=== PATIENT | female | born 1985 ===

== ENCOUNTER 2016-09-16 16:47 | Emergency (ER) | payer OTHER ==
[2016-09-16 17:01] VITALS: BP 121/74; PULSE 74; RESP 19; TEMP 98.8; O2SAT 99
--- NOTE | 2016-09-16 17:30 | ED PDOC ---
HPI: Female Pain Time Seen by Provider: 09/16/16 17:28 Chief Complaint (Nursing): Female Genitourinary Chief Complaint (Provider): vaginal d/c History Per: Patient History/Exam Limitations: no limitations Onset/Duration Of Symptoms: Days (6 months) Associated Symptoms: Other (vaginal d/c-yellow with ithing and burning. was sexually active 6 months agounprotected and noted [facility] from [facility]. has tried douching and OTC antifungal.-non are effective. ) Past Medical History Reviewed: Historical Data, Nursing Documentation, Vital Signs Vital Signs: Last Vital Signs Temp 98.8 F 09/16/16 16:58 Pulse 74 09/16/16 16:58 Resp 19 09/16/16 16:58 BP 121/74 09/16/16 16:58 Pulse Ox 99 09/16/16 16:58 - Medical History PMH: No Chronic Diseases - Family History Family History: States: No Known Family Hx - Home Medications Home Medications: Ambulatory Orders Medication Instructions Recorded Fluconazole [Diflucan] 150 mg PO ONCE #1 tab 09/16/16 - Allergies Allergies/Adverse Reactions: Allergies Allergy/AdvReac Type Severity Reaction Status Date / Time No Known Allergies Allergy Verified 09/16/16 16:56 Review of Systems ROS Statement: Except As Marked, All Systems Reviewed And Found Negative Genitourinary Female: Positive for: Vaginal Discharge Physical Exam - Reviewed Nursing Documentation Reviewed: Yes Vital Signs Reviewed: Yes - Physical Exam Appears: Positive for: Well, Non-toxic, No Acute Distress Head Exam: Positive for: ATRAUMATIC, NORMAL INSPECTION, NORMOCEPHALIC Skin: Positive for: Normal Color, Warm, DRY Cardiovascular/Chest: Positive for: Regular Rate, Rhythm Respiratory: Positive for: CNT, Normal Breath Sounds Pelvic Exam: Positive for: External Exam Normal, Discharge, Lesions (white lesions adhered to wall and cervix) Neurologic/Psych: Positive for: Alert, Oriented - ECG O2 Sat by Pulse Oximetry: 99 Medical Decision Making Medical Decision Making: dx: yeast infection and gonorrhea and chlamydia testing . pt offered to get rx prophylactically but declined. Disposition - Clinical Impression Clinical Impression: Yeast infection - Patient ED Disposition Is Patient to be Admitted: No Counseled Patient/Family Regarding: Diagnosis, Need For Followup, Rx Given - Disposition Disposition: Routine/Home Disposition Time: 17:37 Condition: STABLE Prescriptions: Fluconazole [Diflucan] 150 mg PO ONCE #1 tab Instructions: Vulvovaginal Candidiasis (ED)
[2016-09-16] MEDS ORDERED: Fluconazole 150 MG TAB PO ONE (17:37)
== END 2016-09-16 18:16 | disposition home or self-care (01) ==
LOC: H.ER 16:47
DX: B37.9 Candidiasis, unspecified (principal)

== ENCOUNTER 2016-10-09 11:39 | Emergency (ER) | payer OTHER ==
[2016-10-09 12:06] VITALS: BP 105/67; RESP 18; TEMP 98.6; O2SAT 99
[2016-10-09 12:32] LABS: BASO # 0.1 K/uL (0.0-0.2); BASO % 0.7 % (0.0-2.0); EOS # 0.2 K/uL (0.0-0.7); EOS % 2.1 % (0.0-4.0); HEMOGLOBIN 11.9 g/dL (12.0-16.0); LYMPH % 27.8 % (20.0-40.0); MEAN CELL VOLUME 92.4 fl (81.0-99.0); MEAN CORPUSCULAR HEMOGLOBIN 30.5 pg (27.0-31.0); MEAN PLATELET VOLUME 8.6 fl (7.2-11.7); MONO # 0.4 K/uL (0.0-0.8); MONO % 5.8 % (0.0-10.0); NEUT # 4.6 K/uL (1.8-7.0); NEUT % 63.6 % (50.0-75.0); RBC 3.88 Mil/uL (3.80-5.20); RED CELL DISTRIBUTION WIDTH 13.3 % (11.5-14.5); WHITE BLOOD COUNT 7.3 K/uL (4.8-10.8)
[2016-10-09 13:08] LABS: ALB/GLOB RATIO 1.4 (1.0-2.1); ALBUMIN 4.3 g/dL (3.5-5.0); ALT/SGPT 29 U/L (9-52); AMYLASE 81 U/L (30-110); AST/SGOT 39 U/L (14-36); BLOOD UREA NITROGEN 22 mg/dl (7-17); CALCIUM 9.5 mg/dL (8.4-10.2); GFR AFRICAN-AMERICAN > 60; GFR NON-AFRICAN AMERICAN > 60; LIPASE 70 U/L (23-300)
[2016-10-09 13:14] LABS: SQUAMOUS EPITHIAL 1 /hpf (0-5); URINE BILIRUBIN NEGATIVE (NEGATIVE); URINE BLOOD SMALL (NEGATIVE); URINE CLARITY CLEAR (Clear); URINE COLOR YELLOW (YELLOW); URINE GLUCOSE (UA) NEG (Normal); URINE LEUKOCYTE ESTERASE NEG Leu/uL (Negative); URINE NITRATE NEGATIVE (NEGATIVE); URINE PROTEIN NEGATIVE (NEGATIVE); URINE UROBILINOGEN 0.2-1.0 mg/dL (0.2-1.0)
--- NOTE | 2016-10-09 13:48 | ED PDOC ---
HPI: Abdomen Time Seen by Provider: 10/09/16 12:09 Chief Complaint (Nursing): Abdominal Pain History Per: Patient History/Exam Limitations: no limitations Onset/Duration Of Symptoms: Gradual (today) Current Symptoms Are (Timing): Still Present Severity: Mild Location Of Pain/Discomfort: Epigastric Quality Of Discomfort: Dull, Aching Associated Symptoms: Nausea, Vomiting. denies: Fever, Chills, Diarrhea, Back Pain, Chest Pain, Constipation, Urinary Symptoms Exacerbating Factors: None Alleviating Factors: None Additional History Per: Patient Additional Complaint(s): pt c/o epigastric pain and headache. abdominal pain 10/21. Headache 01/21. pt states she feels dizzy and nauseous but denies vomiting. pt also states pain upon urination. Past Medical History Reviewed: Historical Data, Nursing Documentation, Vital Signs Vital Signs: Last Vital Signs Temp 98.6 F 10/09/16 11:58 Pulse Resp 18 10/09/16 11:58 BP 105/67 10/09/16 11:58 Pulse Ox 99 10/09/16 15:52 - Medical History PMH: No Chronic Diseases - Family History Family History: States: Unknown Family Hx - Living Arrangements Living Arrangements: With Family - Home Medications Home Medications: Ambulatory Orders Medication Instructions Recorded Fluconazole [Diflucan] 150 mg PO ONCE #1 tab 09/16/16 Metoclopramide HCl [Reglan] 10 mg PO QID PRN #30 tablet 10/09/16 Naproxen [Naprosyn Tab] 375 mg PO BID PRN #30 tab 10/09/16 - Allergies Allergies/Adverse Reactions: Allergies Allergy/AdvReac Type Severity Reaction Status Date / Time No Known Allergies Allergy Verified 09/16/16 16:56 Review of Systems ROS Statement: Except As Marked, All Systems Reviewed And Found Negative Constitutional: Negative for: Fever, Chills Cardiovascular: Negative for: Chest Pain, Palpitations, Edema, Light Headedness Respiratory: Negative for: Cough, Shortness of Breath Gastrointestinal: Positive for: Nausea, Vomiting, Abdominal Pain Musculoskeletal: Negative for: Neck Pain Skin: Negative for: Rash Neurological: Positive for: Headache. Negative for: Weakness, Numbness, Confusion, Seizures, Altered Mental Status, Dizziness Physical Exam - Reviewed Nursing Documentation Reviewed: Yes Vital Signs Reviewed: Yes - Physical Exam Appears: Positive for: Uncomfortable Head Exam: Positive for: ATRAUMATIC, NORMAL INSPECTION, NORMOCEPHALIC Eye Exam: Positive for: Normal appearance, EOMI, PERRL. Negative for: Nystagmus , Periorbital swelling, Periorbital tenderness ENT: Positive for: Pharynx Is (mmm). Negative for: Pharyngeal Erythema, Tonsillar Exudate, Tonsillar Swelling Neck: Positive for: Normal, Painless ROM, Supple Cardiovascular/Chest: Positive for: Regular Rate, Rhythm, Chest Non Tender. Negative for: Bradycardia, Tachycardia Respiratory: Positive for: Normal Breath Sounds. Negative for: Decreased Breath Sounds, Accessory Muscle Use, Crackles, Rales, Rhonchi, Stridor, Wheezing Gastrointestinal/Abdominal: Positive for: Normal Exam, Bowel Sounds, Soft. Negative for: Tenderness Back: Positive for: Normal Inspection. Negative for: L CVA Tenderness, R CVA Tenderness Extremity: Positive for: Normal ROM. Negative for: Tenderness, Pedal Edema, Calf Tenderness, Deformity Neurologic/Psych: Positive for: Alert, equipment technician II-XII, Oriented, Mood/Affect (calm) , Cerebellar Tests (ftn), Gait (steady). Negative for: Motor/Sensory Deficits, Aphasia, Facial Droop - Laboratory Results Result Diagrams: 10/09/16 12:20 10/09/16 12:20 - ECG ECG: Positive for: Interpreted By Me ECG Rhythm: Positive for: Normal QRS, Normal ST Segment, Sinus Bradycardia. Negative for: ST/T Changes O2 Sat by Pulse Oximetry: 99 Pulse Ox Interpretation: Normal - Progress ED Course And Treament: ct head neg for bleed. nml us and labs. sx markedly improved advise close f/u in the medical clinic. Re-evaluation Time: 14:30 Condition: Improved Disposition - Clinical Impression Clinical Impression: Headache - Patient ED Disposition Is Patient to be Admitted: No Counseled Patient/Family Regarding: Studies Performed, Diagnosis, Need For Followup - Disposition Referrals: [facility] [Outside] (2 to 3 days) Disposition: Routine/Home Disposition Time: 14:00 Condition: GOOD Prescriptions: Metoclopramide HCl [Reglan] 10 mg PO QID PRN #30 tablet PRN Reason: Nausea/Vomiting Naproxen [Naprosyn Tab] 375 mg PO BID PRN #30 tab PRN Reason: Pain, Moderate (4-7) Instructions: Acute Headache (ED) Print Language: MALDIVIAN
--- NOTE | 2016-10-09 14:31 | US ---
HISTORY: ruq abd pain COMPARISON: None available. TECHNIQUE: Sonographic evaluation of the right upper quadrant of the abdomen. FINDINGS: LIVER: Measures 14.7 cm cm in length and appears within normal limits of shape, size, and echotexture. No focal hepatic mass identified. The main portal vein appears patent with normal directional flow. No intrahepatic bile duct dilatation. GALLBLADDER: No gallstones. No gallbladder wall thickening or pericholecystic edema. Negative sonographic Raymond's sign as assessed by the press operator carbon blocks. COMMON BILE DUCT: Measures 4 mm. PANCREAS: Not well-visualized. RIGHT KIDNEY: Measures 9.7 x 4.2 x 4.3 cm. No obstructing calculus or hydronephrosis identified. AORTA: Limited visualization appears grossly unremarkable. IVC: Limited visualization appears grossly unremarkable. OTHER FINDINGS: None . IMPRESSION: No acute findings. See above.
--- NOTE | 2016-10-09 15:10 | CT ---
PROCEDURE: CT HEAD WITHOUT CONTRAST. HISTORY: le[place]itt COMPARISON: None available. TECHNIQUE: Axial computed tomography images were obtained through the head/brain without intravenous contrast. Radiation dose: Total exam DLP = 819.34 mGy-cm. This CT exam was performed using one or more of the following dose reduction techniques: Automated exposure control, adjustment of the mA and/or kV according to patient size, and/or use of iterative reconstruction technique. FINDINGS: HEMORRHAGE: No intracranial hemorrhage. BRAIN: No mass effect or edema. No atrophy or chronic microvascular ischemic changes.Please note that MRI with diffusion imaging is more sensitive in the detection of acute ischemic event. VENTRICLES: No hydrocephalus. CALVARIUM: Unremarkable. PARANASAL SINUSES: Unremarkable as visualized. No significant inflammatory changes. MASTOID AIR CELLS: Unremarkable as visualized. No inflammatory changes. OTHER FINDINGS: None. IMPRESSION: No acute intracranial pathology identified.
--- NOTE | 2016-10-10 11:37 | CARD ---
APPROVED REPORT EKG Measurement Heart [id number] <Conclusion> Sinus bradycardia Otherwise normal ECG
== END 2016-10-09 15:56 | disposition home or self-care (01) ==
LOC: H.ER 11:39
DX: R10.13 Epigastric pain (principal); R51 Headache; R11.2 Nausea with vomiting, unspecified

== ENCOUNTER 2016-12-18 09:41 | Emergency (ER) | payer SELFPAY ==
[2016-12-18 09:46] VITALS: TEMP 97; O2SAT 99
[2016-12-18 09:47] VITALS: BMI 21.4
--- NOTE | 2016-12-18 10:13 | ED PDOC ---
HPI: Abdomen Time Seen by Provider: 12/18/16 09:59 Chief Complaint (Nursing): Abdominal Pain Chief Complaint (Provider): abdominal pain History Per: Patient History/Exam Limitations: no limitations Onset/Duration Of Symptoms: Hrs (3), Waxing/Waning Outside of [place] travel?: No Current Symptoms Are (Timing): Still Present Context: Food (possible) Severity: Moderate Location Of Pain/Discomfort: Epigastric Quality Of Discomfort: Cramping, "Pain" Associated Symptoms: denies: Nausea, Vomiting, Diarrhea, Constipation, Urinary Symptoms Exacerbating Factors: Walking Alleviating Factors: Rest Last Bowel Movement: Yesterday Additional Complaint(s): 31 year old female presents to ED with complaints of epigastric abdominal pain starting 3 hours ago, described as intermittent cramps. She reports similar episode happened last week. She admits to eating fast food last night. Denies any associated nausea, vomiting, diarrhea or constipation. Past Medical History Reviewed: Historical Data, Nursing Documentation, Vital Signs Vital Signs: Last Vital Signs Temp 97 F L 12/18/16 09:45 Pulse 62 12/18/16 09:45 Resp BP 105/53 L 12/18/16 09:45 Pulse Ox 99 12/18/16 11:39 - Medical History PMH: No Chronic Diseases - Surgical History Surgical History: No Surg Hx - Family History Family History: States: Unknown Family Hx - Living Arrangements Living Arrangements: With Family - Social History Current smoker - smoking cessation education provided: No Alcohol: Occasional Drugs: Denies - Home Medications Home Medications: Ambulatory Orders Medication Instructions Recorded Omeprazole 20 mg PO DAILY #30 capsule. 12/18/16 - Allergies Allergies/Adverse Reactions: Allergies Allergy/AdvReac Type Severity Reaction Status Date / Time No Known Allergies Allergy Verified 12/18/16 10:05 Review of Systems Constitutional: Negative for: Fever, Weakness Eyes: Negative for: Vision Change ENT: Negative for: Throat Pain Cardiovascular: Negative for: Chest Pain, Palpitations Respiratory: Negative for: Cough, Shortness of Breath Gastrointestinal: Positive for: Abdominal Pain. Negative for: Vomiting, Diarrhea, Constipation Genitourinary Female: Negative for: Dysuria, Vaginal Bleeding Musculoskeletal: Negative for: Back Pain Skin: Negative for: Rash Neurological: Negative for: Headache Physical Exam - Reviewed Nursing Documentation Reviewed: Yes Vital Signs Reviewed: Yes - Physical Exam Appears: Positive for: Non-toxic, No Acute Distress Head Exam: Positive for: ATRAUMATIC, NORMAL INSPECTION, NORMOCEPHALIC Skin: Positive for: Warm, Dry. Negative for: Diaphoresis, Pallor, Rash Eye Exam: Positive for: Normal appearance Neck: Positive for: Painless ROM Cardiovascular/Chest: Positive for: Regular Rate, Rhythm. Negative for: Murmur Respiratory: Positive for: Normal Breath Sounds. Negative for: Wheezing, Respiratory Distress Gastrointestinal/Abdominal: Positive for: Bowel Sounds (normal active), Soft, Tenderness (epigastric area). Negative for: Distended, Guarding, Hernia Back: Positive for: Normal Inspection. Negative for: L CVA Tenderness, R CVA Tenderness Extremity: Positive for: Normal ROM. Negative for: Tenderness, Deformity Neurologic/Psych: Positive for: Alert, Oriented - Laboratory Results Result Diagrams: 12/18/16 10:30 12/18/16 10:30 - ECG O2 Sat by Pulse Oximetry: 99 Medical Decision Making Medical Decision Making: Impression: epigastric abdominal pain Prior records reviewed: patient last seen 10/09/16 for abdominal pain and headache, normal labs and CT head, normal renal and abdominal US; patient was discharged. Plan: * Labs * IV NS, Pepcid, Toradol Progress: Labs reviewed and unremarkable, no leukocytosis, elevated lipase or other abnormality. 1135 Patient reevaluated and reports feeling better, pain has much improved. She reports using restroom and after having bowel movement, feeling better. Abdomen remains soft and patient has no fever and stable vital signs. Disposition - Clinical Impression Clinical Impression: Epigastric abdominal pain, Gastritis - Patient ED Disposition Is Patient to be Admitted: No Counseled Patient/Family Regarding: Studies Performed, Diagnosis, Need For Followup, Rx Given - Disposition Referrals: [facility] [Outside] Disposition: Routine/Home Disposition Time: 11:37 Condition: IMPROVED Additional Instructions: Tus laboratorios filiberto normales Por favor tome los medicamentos necesarios para el dolor diario Seguimiento en la clnica para ms atencin Prescriptions: Omeprazole 20 mg PO DAILY #30 capsule. Instructions: Gastritis (DC) Forms: [employer] (Indian) Print Language: SYRIAC - POA Present On Arrival: None
[2016-12-18] MEDS ORDERED: Sodium Chloride 0.9% 1,000 ML IV SCH (10:30)
[2016-12-18 10:46] LABS: BASO # 0.1 K/uL (0.0-0.2); BASO % 0.5 % (0.0-2.0); EOS # 0.2 K/uL (0.0-0.7); EOS % 1.6 % (0.0-4.0); HEMATOCRIT 36.1 % (34.0-47.0); LYMPH # 2.4 K/uL (1.0-4.3); MEAN CELL VOLUME 92.1 fl (81.0-99.0); MEAN CORPUSCULAR HGB CONC 33.7 g/dL (33.0-37.0); MEAN PLATELET VOLUME 8.5 fl (7.2-11.7); MONO # 0.5 K/uL (0.0-0.8); NEUT # 6.5 K/uL (1.8-7.0); NEUT % 67.9 % (50.0-75.0); RED CELL DISTRIBUTION WIDTH 13.2 % (11.5-14.5); WHITE BLOOD COUNT 9.5 K/uL (4.8-10.8)
[2016-12-18 10:53] LABS: ALB/GLOB RATIO 1.4 (1.0-2.1); ALKALINE PHOSPHATASE 48 U/L (38-126); ALT/SGPT 25 U/L (9-52); AST/SGOT 18 U/L (14-36); BILIRUBIN,TOTAL 0.5 mg/dl (0.2-1.3); BLOOD UREA NITROGEN 13 mg/dl (7-17); CALCIUM 9.1 mg/dL (8.4-10.2); CARBON DIOXIDE 23 mmol/L (22-30); CHLORIDE 104 mmol/L (98-107); GFR AFRICAN-AMERICAN > 60; GLUCOSE,RANDOM 89 mg/dL (65-105); LIPASE 75 U/L (23-300); POTASSIUM 4.3 MMOL/L (3.6-5.0); SODIUM 137 mmol/l (132-148); TOTAL PROTEIN 7.1 G/DL (6.3-8.2)
[2016-12-18 11:10] LABS: RBC URINE 6 /hpf (0-3); URINE BACTERIA RARE (<OCC); URINE BILIRUBIN NEGATIVE (NEGATIVE); URINE BLOOD MODERATE (NEGATIVE); URINE COLOR YELLOW (YELLOW); URINE GLUCOSE (UA) NEG (Normal); URINE KETONE NEGATIVE (NEGATIVE); URINE LEUKOCYTE ESTERASE TRACE Leu/uL (Negative); URINE PROTEIN NEGATIVE (NEGATIVE); URINE UROBILINOGEN 0.2-1.0 mg/dL (0.2-1.0); WBC URINE 2 /hpf (0-5)
[2016-12-18 12:37] VITALS: BP 107/54; PULSE 61; RESP 18
== END 2016-12-18 12:37 | disposition home or self-care (01) ==
LOC: H.ER 09:41
DX: K29.70 Gastritis, unspecified, without bleeding (principal)
CPT/HCPCS: 80053; 81003; 81025; 83690; 85025; 96361; 96374; 96375; 99283; J1885; J7040

== ENCOUNTER 2017-03-31 18:53 | Emergency (ER) | payer SELFPAY ==
[2017-03-31 18:54] VITALS: BMI 21.4
[2017-03-31 19:00] VITALS: BP 111/48; PULSE 76; RESP 18; TEMP 98.1; O2SAT 98
--- NOTE | 2017-03-31 19:48 | ED PDOC ---
HPI: General Adult Time Seen by Provider: 03/31/17 19:38 Chief Complaint (Nursing): Flu-like Symptoms Chief Complaint (Provider): Flu-like Symptoms History Per: Patient History/Exam Limitations: no limitations Onset/Duration Of Symptoms: Days (x3) Current Symptoms Are (Timing): Still Present Additional Complaint(s): Vannessa Cox is a 32 year old female that presents to the ED with a chief complaint of headache, nasal congestion, throat pain, and generalized weakness that she has been experiencing for the past three days. Patient reports that she took Advil Cold & Sinus with mild relief of her symptoms yesterday but presents to the ED because she is unsure of which medications to take. Past Medical History Reviewed: Historical Data, Nursing Documentation, Vital Signs Vital Signs: Last Vital Signs Temp 98.1 F 03/31/17 18:56 Pulse 76 03/31/17 18:56 Resp 18 03/31/17 18:56 BP 111/48 L 03/31/17 18:56 Pulse Ox 98 03/31/17 19:54 - Family History Family History: States: Unknown Family Hx - Home Medications Home Medications: Ambulatory Orders Medication Instructions Recorded Omeprazole 20 mg PO DAILY #30 capsule. 12/18/16 Ibuprofen [Motrin] 600 mg PO Q8 PRN #21 tab 03/31/17 Promethazine/Codeine 5 ml PO Q12 PRN #100 ml 03/31/17 [Codeine/Promethazine 10 MG/5 Ml-6.25 MG/5 Ml] Pseudoephedrine [Sudafed Tab] 60 mg PO Q6 PRN #24 tab 03/31/17 - Allergies Allergies/Adverse Reactions: Allergies Allergy/AdvReac Type Severity Reaction Status Date / Time No Known Allergies Allergy Verified 03/31/17 18:56 Review of Systems Constitutional: Positive for: Weakness ENT: Positive for: Nose Congestion, Throat Pain Neurological: Positive for: Headache Physical Exam - Reviewed Nursing Documentation Reviewed: Yes Vital Signs Reviewed: Yes - Physical Exam Appears: Positive for: Non-toxic, No Acute Distress Head Exam: Positive for: ATRAUMATIC, NORMOCEPHALIC Skin: Positive for: Normal Color, Warm Eye Exam: Positive for: Normal appearance, EOMI, PERRL ENT: Positive for: Nasal Congestion. Negative for: Pharyngeal Erythema, Tonsillar Exudate Cardiovascular/Chest: Positive for: Regular Rate, Rhythm. Negative for: Murmur Respiratory: Positive for: Normal Breath Sounds (Lung sounds clear to auscultation). Negative for: Wheezing Neurologic/Psych: Positive for: Alert, Oriented. Negative for: Motor/Sensory Deficits - ECG O2 Sat by Pulse Oximetry: 98 (RA) Pulse Ox Interpretation: Normal - Progress ED Course And Treament: flu a/b neg strep neg Medical Decision Making Medical Decision Making: Impression: Viral Illness Plan: * Flu Swab * Rapid Strep * Reevaluation Scribe Attestation: Documented by Roselia Nolasco, acting as a scribe for Giovanna Lee PA-C. Provider Scribe Attestation: All medical record entries made by the Scribe were at my direction and personally dictated by me. I have reviewed the chart and agree that the record accurately reflects my personal performance of the history, physical exam, medical decision making, and the department course for this patient. I have also personally directed, reviewed, and agree with the discharge instructions and disposition. Disposition - Clinical Impression Clinical Impression: Viral illness - Patient ED Disposition Is Patient to be Admitted: No - Disposition Referrals: [facility] [Outside] Disposition: Routine/Home Disposition Time: 21:06 Condition: FAIR Prescriptions: Ibuprofen [Motrin] 600 mg PO Q8 PRN #21 tab PRN Reason: Pain, Moderate (4-7) Promethazine/Codeine [Codeine/Promethazine 10 MG/5 Ml-6.25 MG/5 Ml] 5 ml PO Q12 PRN #100 ml PRN Reason: Cough Pseudoephedrine [Sudafed Tab] 60 mg PO Q6 PRN #24 tab PRN Reason: Nasal Congestion Instructions: Viral Syndrome (ED) Forms: [employer] (Tongan), [facility] ED School/Work Excuse
== END 2017-03-31 21:32 | disposition home or self-care (01) ==
LOC: H.ER 18:53
DX: B34.9 Viral infection, unspecified (principal)

== ENCOUNTER 2017-04-21 10:57 | Emergency (ER) | payer SELFPAY ==
[2017-04-21 10:57] VITALS: BMI 21.4
[2017-04-21 12:29] VITALS: BP 180/53; PULSE 72; RESP 16; TEMP 97.8; O2SAT 100
--- NOTE | 2017-04-21 14:22 | ED PDOC ---
HPI: General Adult Time Seen by Provider: 04/21/17 14:00 Chief Complaint (Nursing): Trauma Chief Complaint (Provider): Neck pain History Per: Patient History/Exam Limitations: no limitations Additional Complaint(s): Patient is a 32 y/o female with no significant past medical history presenting to the emergency department for moderate neck pain with numbness on her right upper arm. Reports that she slipped on the snow and hit her neck against a railing. Also reports pain along her mid and lower back, as well as pain to the anterior part of her throat (to touch). Reports taking Advil and Naproxen without significant relief. Denies taking medication today, loss of consciousness, syncope, or any other complaints. PCP: none provided. Past Medical History Reviewed: Historical Data, Nursing Documentation, Vital Signs Vital Signs: Last Vital Signs Temp 97.8 F 04/21/17 12:26 Pulse 72 04/21/17 12:26 Resp 16 04/21/17 12:26 BP 180/53 H 04/21/17 12:26 Pulse Ox 100 04/21/17 16:37 - Family History Family History: States: Unknown Family Hx - Home Medications Home Medications: Ambulatory Orders Medication Instructions Recorded Omeprazole 20 mg PO DAILY #30 capsule. 12/18/16 Ibuprofen [Motrin] 600 mg PO Q8 PRN #21 tab 03/31/17 Promethazine/Codeine 5 ml PO Q12 PRN #100 ml 03/31/17 [Codeine/Promethazine 10 MG/5 Ml-6.25 MG/5 Ml] Pseudoephedrine [Sudafed Tab] 60 mg PO Q6 PRN #24 tab 03/31/17 Naproxen 1 tab PO Q12 PRN #14 tab 04/21/17 diaZEpam [Valium] 5 mg PO Q6 PRN #5 tab 04/21/17 oxyCODONE/Acetaminophen [Percocet 1 ea PO Q6 PRN #4 tab 04/21/17 5/325 mg Tab] - Allergies Allergies/Adverse Reactions: Allergies Allergy/AdvReac Type Severity Reaction Status Date / Time No Known Allergies Allergy Verified 03/31/17 18:56 Review of Systems ROS Statement: Except As Marked, All Systems Reviewed And Found Negative ENT: Positive for: Throat Pain (anteriorly to palpation) Musculoskeletal: Positive for: Neck Pain (moderate), Arm Pain (numbness of right upper arm), Back Pain (lower and middle region) Neurological: Negative for: Other (loss of consciousness or syncope) Physical Exam - Reviewed Nursing Documentation Reviewed: Yes Vital Signs Reviewed: Yes - Physical Exam Appears: Positive for: Well, Non-toxic, No Acute Distress Head Exam: Positive for: ATRAUMATIC, NORMAL INSPECTION, NORMOCEPHALIC Skin: Positive for: Normal Color, Warm, Dry Eye Exam: Positive for: Normal appearance Cardiovascular/Chest: Positive for: Regular Rate, Rhythm Respiratory: Negative for: Accessory Muscle Use, Respiratory Distress Gastrointestinal/Abdominal: Positive for: Normal Exam, Soft. 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 Negative for: Pedal Edema Neurologic/Psych: Positive for: Alert, Oriented (x3) - ECG O2 Sat by Pulse Oximetry: 100 (RA) Pulse Ox Interpretation: Normal Medical Decision Making Medical Decision Making: Time: 14:14 Initial impression: Neck pain Initial plan: Neck CT with cervical spine recon Toradol 30 mg IM 15:[address] reviewed and findings noted as follows: FINDINGS: VERTEBRAE: No fracture. Normal alignment. No destructive bony lesion. DISCS/SPINAL CANAL/NEURAL FORAMINA: No significant central canal or neural foraminal stenosis. Discs heights are grossly preserved. PARASPINAL SOFT TISSUES: No suspicious soft tissue changes seen throughout the anterior neck soft tissues as well as prevertebral and paraspinal soft tissues both anteriorly and posteriorly. The pharynx and larynx appear intact as well as the trachea as imaged. The hyoid bone is intact as well. If further soft tissue details required throughout thin neck in follow-up neck CT with contrast is recommended. OTHER FINDINGS: Incidental note is made of a tiny calcified granuloma the right pulmonary apex. IMPRESSION: Unremarkable CT of the cervical spine. Unenhanced neck soft tissues appear grossly nonfocal as described above as well. ~ Scribe Attestation: Documented by Alma Douglas, acting as a scribe for EMMANUELLE Gardner. Provider Scribe Attestation: All medical record entries made by the Scribe were at my direction and personally dictated by me. I have reviewed the chart and agree that the record accurately reflects my personal performance of the history, physical exam, medical decision making, and the department course for this patient. I have also personally directed, reviewed, and agree with the discharge instructions and disposition. Disposition - Clinical Impression Clinical Impression: Neck injury - Patient ED Disposition Is Patient to be Admitted: No - Disposition Disposition: Routine/Home Disposition Time: 16:33 Condition: FAIR Prescriptions: diaZEpam [Valium] 5 mg PO Q6 PRN #5 tab PRN Reason: Muscle Spasm Naproxen 1 tab PO Q12 PRN #14 tab PRN Reason: Pain, Moderate (4-7) oxyCODONE/Acetaminophen [Percocet 5/325 mg Tab] 1 ea PO Q6 PRN #4 tab PRN Reason: Pain, Severe (8-10) Instructions: Cervical Strain (DC) Forms: [employer] (Vietnamese), [facility] ED School/Work Excuse
--- NOTE | 2017-04-21 16:00 | CT ---
PROCEDURE: CT Cervical Spine without contrast HISTORY: Trauma including anterior neck soft tissues. COMPARISON: None available. TECHNIQUE: Axial computed tomography images were obtained of the cervical spine without the use of intravenous contrast. Coronal and sagittal reformatted images were created and reviewed. Radiation dose: Total exam DLP = 458.20 mGy-cm. This CT exam was performed using one or more of the following dose reduction techniques: Automated exposure control, adjustment of the mA and/or kV according to patient size, and/or use of iterative reconstruction technique. FINDINGS: VERTEBRAE: No fracture. Normal alignment. No destructive bony lesion. DISCS/SPINAL CANAL/NEURAL FORAMINA: No significant central canal or neural foraminal stenosis. Discs heights are grossly preserved. PARASPINAL SOFT TISSUES: No suspicious soft tissue changes seen throughout the anterior neck soft tissues as well as prevertebral and paraspinal soft tissues both anteriorly and posteriorly. The pharynx and larynx appear intact as well as the trachea as imaged. The hyoid bone is intact as well. If further soft tissue details required throughout thin neck in follow-up neck CT with contrast is recommended. OTHER FINDINGS: Incidental note is made of a tiny calcified granuloma the right pulmonary apex. IMPRESSION: Unremarkable CT of the cervical spine. Unenhanced neck soft tissues appear grossly nonfocal as described above as well.
== END 2017-04-21 17:31 | disposition home or self-care (01) ==
LOC: H.ER 10:57
DX: S13.4XXA Sprain of ligaments of cervical spine, initial encounter (principal); W00.0XXA Fall on same level due to ice and snow, initial encounter; Y92.89 Other specified places as the place of occurrence of the external cause
CPT/HCPCS: 72125; 96372; 99283; J1885

== ENCOUNTER 2017-11-12 19:09 | Emergency (ER) | payer SELFPAY ==
[2017-11-12 19:09] VITALS: BMI 21.4
[2017-11-12 19:30] VITALS: BP 116/74; PULSE 70; RESP 16; TEMP 99.1; O2SAT 98
--- NOTE | 2017-11-12 19:52 | ED PDOC ---
Lower Extremity Pain/Injury Time Seen by Provider: 11/12/17 19:40 Chief Complaint (Nursing): Lower Extremity Problem/Injury Chief Complaint (Provider): Left Ankle Pain History Per: Patient History/Exam Limitations: no limitations Onset/Duration Of Symptoms: Days (x1 week) Current Symptoms Are (Timing): Still Present Additional Complaint(s): 32 year old female presents to the ED for evaluation of left ankle pain. Patient reports that one week ago she tripped and fell, hurting her left ankle. She states she tried to manage the pain with rest and ibuprofen until her appt. with her PMD in a couple days. Worsening of the symptoms onset five days ago however, prompted her visit today because she wants to r/o a fracture. PMD: [facility] Past Medical History Reviewed: Historical Data, Nursing Documentation, Vital Signs Vital Signs: Last Vital Signs Temp 99.1 F 11/12/17 19:27 Pulse 70 11/12/17 19:27 Resp 16 11/12/17 19:27 BP 116/74 11/12/17 19:27 Pulse Ox 98 11/12/17 19:27 - Medical History PMH: No Chronic Diseases - Surgical History Surgical History: No Surg Hx - Family History Family History: States: Unknown Family Hx - Home Medications Home Medications: Ambulatory Orders Medication Instructions Recorded Omeprazole 20 mg PO DAILY #30 capsule. 12/18/16 Ibuprofen [Motrin] 600 mg PO Q8 PRN #21 tab 03/31/17 Promethazine/Codeine 5 ml PO Q12 PRN #100 ml 03/31/17 [Codeine/Promethazine 10 MG/5 Ml-6.25 MG/5 Ml] Pseudoephedrine [Sudafed Tab] 60 mg PO Q6 PRN #24 tab 03/31/17 Naproxen 1 tab PO Q12 PRN #14 tab 04/21/17 diaZEpam [Valium] 5 mg PO Q6 PRN #5 tab 04/21/17 oxyCODONE/Acetaminophen [Percocet 1 ea PO Q6 PRN #4 tab 04/21/17 5/325 mg Tab] Ibuprofen [Motrin] 600 mg PO Q8 PRN #21 tab 11/12/17 - Allergies Allergies/Adverse Reactions: Allergies Allergy/AdvReac Type Severity Reaction Status Date / Time No Known Allergies Allergy Verified 03/31/17 18:56 Review of Systems ROS Statement: Except As Marked, All Systems Reviewed And Found Negative Musculoskeletal: Positive for: Other (left ankle pain) Physical Exam - Reviewed Nursing Documentation Reviewed: Yes Vital Signs Reviewed: Yes - Physical Exam Appears: Positive for: No Acute Distress Head Exam: Positive for: ATRAUMATIC, NORMOCEPHALIC Skin: Positive for: Normal Color, Warm, Dry Eye Exam: Positive for: Normal appearance Neck: Positive for: Normal, Painless ROM Cardiovascular/Chest: Positive for: Regular Rate, Rhythm Respiratory: Positive for: Normal Breath Sounds. Negative for: Accessory Muscle Use, Respiratory Distress Extremity: Positive for: Normal ROM (or left foot / ankle), Tenderness (to anterior left ankle, non-tender foot), Swelling (to left lateral malleolus). Negative for: Other (ecchymosis of foot or ankle) Neurologic/Psych: Positive for: Alert, Oriented (x3). Negative for: Motor/ Sensory Deficits - ECG O2 Sat by Pulse Oximetry: 98 (RA) Pulse Ox Interpretation: Normal - Progress ED Course And Treament: ankle xry: neg for fx placed in air cast and given crutch instructions Medical Decision Making Medical Decision Making: Time: 19:45 Initial Impression: acute left ankle pain Initial Plan: --Left ankle XR Scribe Attestation: Documented by Mahi Parra, acting as a scribe for Giovanna Lee PA-C. Provider Scribe Attestation: All medical record entries made by the Scribe were at my direction and personally dictated by me. I have reviewed the chart and agree that the record accurately reflects my personal performance of the history, physical exam, medical decision making, and the department course for this patient. I have also personally directed, reviewed, and agree with the discharge instructions and disposition. Disposition - Clinical Impression Clinical Impression: Ankle injury - Patient ED Disposition Is Patient to be Admitted: No - Disposition Referrals: Podiatry Clinic [Outside] Disposition: Routine/Home Disposition Time: 21:00 Condition: FAIR Prescriptions: Ibuprofen [Motrin] 600 mg PO Q8 PRN #21 tab PRN Reason: Pain, Moderate (4-7) Instructions: Ankle Sprain (DC) Forms: [facility] ED School/Work Excuse Print Language: TUNISIAN
--- NOTE | 2017-11-13 09:12 | RAD ---
Date of service: 11/12/2017 PROCEDURE: Left Ankle Radiographs. HISTORY: ANKLE INJURY COMPARISON: None FINDINGS: BONES: No acute fracture or destructive bony lesion identified. JOINTS: Normal. No osteoarthritis. Ankle mortise maintained. Talar dome intact SOFT TISSUES: Mild lateral malleolar soft tissue edema identified. OTHER FINDINGS: None. IMPRESSION: No acute fracture, subluxation or dislocation left ankle. Mild lateral malleolar soft tissue edema identified.
== END 2017-11-12 21:12 | disposition home or self-care (01) ==
LOC: H.ER 19:09
DX: S99.912A Unspecified injury of left ankle, initial encounter (principal); W19.XXXA Unspecified fall, initial encounter; Y92.89 Other specified places as the place of occurrence of the external cause

== ENCOUNTER 2018-08-13 13:22 | Emergency (ER) | payer SELFPAY ==
[2018-08-13 13:23] VITALS: BMI 21.4
[2018-08-13 13:49] VITALS: RESP 18; TEMP 98.8
--- NOTE | 2018-08-13 14:20 | ED PDOC ---
HPI:Nausea, Vomiting, Diarrhea Time Seen by Provider: 08/13/18 14:00 Chief Complaint (Nursing): GI Problem Chief Complaint (Provider): Vomiting, Diarrhea, Abdominal Pain History Per: Patient History/Exam Limitations: no limitations Onset/Duration Of Symptoms: Hrs Current Symptoms Are (Timing): Still Present Quality Of Discomfort: "Pain" Associated Symptoms: Vomiting, Diarrhea. denies: Fever, Urinary Symptoms Additional Complaint(s): 33 year old female presents to the ED for an evaluation of vomiting and diarrhea onset today morning associated with abdominal pain. Patient reports last night she had a sandwich and her boyfriend has the same symptoms. Otherwise, she is unsure of fever and denies dysuria, chills, weakness, numbness or any urinary symptoms. PMD: Non [facility] Provider Abnormal Vaginal Bleeding: No Past Medical History Reviewed: Historical Data, Nursing Documentation, Vital Signs Vital Signs: Last Vital Signs Temp 98.8 F 08/13/18 13:48 Pulse 82 08/13/18 13:48 Resp 18 08/13/18 13:48 BP 119/80 08/13/18 13:48 Pulse Ox 97 08/13/18 13:48 Primary Care Provider: Cecilia Sherman - Medical History PMH: No Chronic Diseases - Surgical History Surgical History: No Surg Hx - Family History Family History: States: Unknown Family Hx - Home Medications Home Medications: Ambulatory Orders Medication Instructions Recorded Omeprazole 20 mg PO DAILY #30 capsule. 12/18/16 Ibuprofen [Motrin] 600 mg PO Q8 PRN #21 tab 03/31/17 Promethazine/Codeine 5 ml PO Q12 PRN #100 ml 03/31/17 [Codeine/Promethazine 10 MG/5 Ml-6.25 MG/5 Ml] Pseudoephedrine [Sudafed Tab] 60 mg PO Q6 PRN #24 tab 03/31/17 Naproxen 1 tab PO Q12 PRN #14 tab 04/21/17 diaZEpam [Valium] 5 mg PO Q6 PRN #5 tab 04/21/17 oxyCODONE/Acetaminophen [Percocet 1 ea PO Q6 PRN #4 tab 04/21/17 5/325 mg Tab] Ibuprofen [Motrin] 600 mg PO Q8 PRN #21 tab 11/12/17 Dicyclomine [Bentyl] 10 mg PO BID PRN 5 Days cap 08/13/18 Famotidine [Pepcid] 20 mg PO DAILY PRN #6 tab 08/13/18 Ondansetron ODT [Zofran ODT] 4 mg PO TID PRN #8 odt 08/13/18 - Allergies Allergies/Adverse Reactions: Allergies Allergy/AdvReac Type Severity Reaction Status Date / Time No Known Allergies Allergy Verified 08/13/18 13:48 Review of Systems ROS Statement: Except As Marked, All Systems Reviewed And Found Negative Constitutional: Negative for: Fever, Chills Gastrointestinal: Positive for: Vomiting, Abdominal Pain, Diarrhea Genitourinary Female: Negative for: Dysuria, Frequency, Incontinence, Hematuria, Vaginal Discharge, Vaginal Bleeding Skin: Negative for: Rash Neurological: Negative for: Weakness, Numbness Physical Exam - Reviewed Nursing Documentation Reviewed: Yes Vital Signs Reviewed: Yes - Physical Exam Appears: Positive for: Well, Non-toxic, No Acute Distress Head Exam: Positive for: ATRAUMATIC, NORMAL INSPECTION, NORMOCEPHALIC Skin: Positive for: Normal Color, Warm, Dry. Negative for: Rash Eye Exam: Positive for: EOMI, Normal appearance, PERRL ENT: Positive for: Normal ENT Inspection Neck: Positive for: Normal, Painless ROM, Supple. Negative for: Decreased ROM Cardiovascular/Chest: Positive for: Regular Rate, Rhythm. Negative for: Murmur Respiratory: Positive for: Normal Breath Sounds. Negative for: Respiratory Distress Gastrointestinal/Abdominal: Positive for: Soft, Tenderness (bilateral lower quadrants, left quadrant more tender than right quadrant ) Back: Positive for: Normal Inspection. Negative for: L CVA Tenderness, R CVA Tenderness Extremity: Positive for: Normal ROM. Negative for: Tenderness, Pedal Edema, Deformity Neurological/Psych: Positive for: Awake, Alert, Normal Tone, Oriented (x3) - Laboratory Results Result Diagrams: 08/13/18 14:40 08/13/18 14:40 - ECG O2 Sat by Pulse Oximetry: 97 (RA) Pulse Ox Interpretation: Normal Medical Decision Making Medical Decision Making: Time: [id number] Impression: abdominal pain, vomiting, diarrhea Plan: --ABD & Pelvis IV contrast CT --CMP --ED urine --ED urine dipstick --CBC w/ differential --PTT --Prothrombin time --Bentyl 20mg --Normal saline 1000 mls/hr --Zofran inj --UA --Re-evaluation 1500 Patient care endorsed to Dr. Barron pending CT scan, reassessment, and final disposition. Scribe Attestation: Documented by Silvia Ruiz, acting as a scribe for La Barrera MD Provider Scribe Attestation: All medical record entries made by the Scribe were at my direction and personally dictated by me. I have reviewed the chart and agree that the record accurately reflects my personal performance of the history, physical exam, medic al decision making, and the department course for this patient. I have also personally directed, reviewed, and agree with the discharge instructions and disposition. Disposition - Clinical Impression Clinical Impression: Enteritis - Disposition Referrals: [facility] [Outside] - 08/17/18 Disposition: Transfer of Care Disposition Time: 15:00 Condition: STABLE Additional Instructions: Return if not better in 3 days. Prescriptions: Dicyclomine [Bentyl] 10 mg PO BID PRN 5 Days cap PRN Reason: Diarrhea Famotidine [Pepcid] 20 mg PO DAILY PRN #6 tab PRN Reason: Pain Ondansetron ODT [Zofran ODT] 4 mg PO TID PRN #8 odt PRN Reason: Nausea/Vomiting Instructions: Diarrhea in Adolescents and Adults, Nausea and Vomiting, Adult Patient Signed Over To: Barrie Barron (pending CT scan, reassessment, and final disposition)
[2018-08-13] MEDS ORDERED: Sodium Chloride 0.9% 1,000 ML IV STA (14:21)
[2018-08-13 14:58] LABS: BASO % 0.3 % (0.0-2.0); EOS % 0.2 % (0.0-4.0); LYMPH # 0.4 K/uL (1.0-4.3); LYMPH % 3.2 % (20.0-40.0); MEAN CELL VOLUME 92.4 fl (81.0-99.0); MEAN CORPUSCULAR HEMOGLOBIN 30.2 pg (27.0-31.0); MEAN CORPUSCULAR HGB CONC 32.7 g/dL (33.0-37.0); MEAN PLATELET VOLUME 8.5 fl (7.2-11.7); MONO # 0.4 K/uL (0.0-0.8); MONO % 2.7 % (0.0-10.0); NEUT % 93.6 % (50.0-75.0); PLATELET COUNT 249 K/uL (130-400); RED CELL DISTRIBUTION WIDTH 13.2 % (11.5-14.5); WHITE BLOOD COUNT 13.9 K/uL (4.8-10.8)
[2018-08-13 15:11] LABS: ALB/GLOB RATIO 1.4 (1.0-2.1); ALBUMIN 4.4 g/dL (3.5-5.0); ALT/SGPT 26 U/L (9-52); AST/SGOT 27 U/L (14-36); BLOOD UREA NITROGEN 17 mg/dl (7-17); CALCIUM 9.1 mg/dL (8.4-10.2); GFR NON-AFRICAN AMERICAN > 60
--- NOTE | 2018-08-13 15:14 | ED PDOC ---
- Laboratory Results Result Diagrams: 08/13/18 14:40 08/13/18 14:40 Lab Results: Total Bilirubin 0.7 mg/dl (0.2-1.3) 08/13/18 14:40 AST 27 U/L (14-36) 08/13/18 14:40 ALT 26 U/L (9-52) 08/13/18 14:40 Alkaline Phosphatase 86 U/L (38-126) 08/13/18 14:40 Total Protein 7.7 G/DL (6.3-8.2) 08/13/18 14:40 Albumin 4.4 g/dL (3.5-5.0) 08/13/18 14:40 Globulin 3.3 gm/dL (2.2-3.9) 08/13/18 14:40 Albumin/Globulin Ratio 1.4 (1.0-2.1) 08/13/18 14:40 - ECG O2 Sat by Pulse Oximetry: 97 (RA) Pulse Ox Interpretation: Normal - Progress ED Course And Treament: 13.9 wbc. 1823: AAOx3. Tolerated PO. Stable. Pain free. Fu with pcp. Enteritis likely cause of elevated wbc mild. Medical Decision Making Medical Decision Makin Patient care endorsed from Dr. Barrera pending CT scan, reassessment, and final disposition. Scribe Attestation: Documented by Silvia Ruiz, acting as a scribe for Barrie Barron MD Provider Scribe Attestation: All medical record entries made by the Scribe were at my direction and personally dictated by me. I have reviewed the chart and agree that the record a ccurately reflects my personal performance of the history, physical exam, medical decision making, and the department course for this patient. I have also personally directed, reviewed, and agree with the discharge instructions and disposition. Disposition Counseled Patient/Family Regarding: Studies Performed, Diagnosis, Need For Followup, Rx Given - Clinical Impression Clinical Impression: Enteritis - POA Present On Arrival: None - Disposition Referrals: [facility] [Outside] - 08/17/18 Disposition: Routine/Home Disposition Time: 18:24 Condition: STABLE Additional Instructions: Return if not better in 3 days. Prescriptions: Dicyclomine [Bentyl] 10 mg PO BID PRN 5 Days cap PRN Reason: Diarrhea Famotidine [Pepcid] 20 mg PO DAILY PRN #6 tab PRN Reason: Pain Ondansetron ODT [Zofran ODT] 4 mg PO TID PRN #8 odt PRN Reason: Nausea/Vomiting Instructions: Diarrhea in Adolescents and Adults, Nausea and Vomiting, Adult
[2018-08-13 15:15] LABS: INR 1.3; PROTHROMBIN TIME 15.1 Seconds (9.8-13.1)
[2018-08-13 15:18] LABS: PARTIAL THROMBOPLASTIN TIME 31.9 Seconds (25.6-37.1)
[2018-08-13 15:26] LABS: SQUAMOUS EPITHIAL 1 /hpf (0-5); URINE BACTERIA RARE (<OCC); URINE BILIRUBIN NEGATIVE (NEGATIVE); URINE BLOOD NEGATIVE (NEGATIVE); URINE CLARITY CLEAR (Clear); URINE COLOR YELLOW (YELLOW); URINE GLUCOSE (UA) NEG (NEGATIVE); URINE LEUKOCYTE ESTERASE NEG Leu/uL (Negative); URINE PROTEIN NEGATIVE (NEGATIVE); URINE UROBILINOGEN 0.2-1.0 mg/dL (0.2-1.0)
[2018-08-13] MEDS ORDERED: Sodium Chloride 0.9% 50 ML IV ONE (16:21)
[2018-08-13] MEDS ORDERED: Iohexol 300 100 ML IJ ONE (16:21)
[2018-08-13 16:53] LABS: BANDS 2 % (0-2); HYPOCHROMIC SLIGHT; LYMPHOCYTE 5 % (20-50); MONOCYTE 2 % (0-10); NEUTROPHIL 91 % (42-75); PLATELET ESTIMATE NORMAL (NORMAL); TOTAL CELLS COUNTED 100
--- NOTE | 2018-08-13 17:14 | CT ---
Date of service: 08/13/2018 PROCEDURE: CT Abdomen and Pelvis with contrast HISTORY: BLQ pain, v/d COMPARISON: None. TECHNIQUE: Intravenous contrast dose: 90 cc Omnipaque 300. Radiation dose: Total exam DLP = 456.66 mGy-cm. This CT exam was performed using one or more of the following dose reduction techniques: Automated exposure control, adjustment of the mA and/or kV according to patient size, and/or use of iterative reconstruction technique. FINDINGS: LOWER THORAX: Unremarkable. LIVER: Hepatic steatosis. No focal masses. No intrahepatic bile duct dilatation or perihepatic ascites. GALLBLADDER AND BILE DUCTS: Unremarkable. PANCREAS: Unremarkable. No gross lesion or ductal dilatation. SPLEEN: Unremarkable. ADRENALS: Unremarkable. No mass. KIDNEYS AND URETERS: Unremarkable. No hydronephrosis. No solid mass. VASCULATURE: Unremarkable. No aortic aneurysm. No atherosclerotic calcification or mural plaque present. BOWEL: Fluid-filled loops of small bowel slightly dilated proximally and to lesser extent mid and distal small bowel noted. Findings are consistent with enteritis. No mechanical obstructing lesion noted. APPENDIX: No abnormalities to suggest acute appendicitis. No right lower quadrant inflammatory processes identified. PERITONEUM: Unremarkable. No free fluid. No free air. LYMPH NODES: Unremarkable. No enlarged lymph nodes. BLADDER: Unremarkable. REPRODUCTIVE: Intrauterine contraceptive device (IUD) identified BONES: No acute fracture. OTHER FINDINGS: None. IMPRESSION: Findings consistent with enteritis. No evidence of inflammatory bowel disease, colitis, mechanical bowel obstruction. Additional benign and/or incidental findings described above.
[2018-08-13 18:48] VITALS: BP 117/78; PULSE 79
[2018-08-18 21:33] VITALS: O2SAT 97
== END 2018-08-13 18:46 | disposition home or self-care (01) ==
LOC: H.ER 13:22
DX: K52.9 Noninfective gastroenteritis and colitis, unspecified (principal); Z79.899 Other long term (current) drug therapy
CPT/HCPCS: 74177; 80053; 81003; 81025; 85025; 85610; 85730; 99284; J2405; J7030; Q9967